=== PATIENT | male | born 1995 | race Caucasian/White ===

== ENCOUNTER 2018-05-23 12:39 | Emergency (ER) | payer OTHER ==
[2018-05-23 12:49] VITALS: BMI 25.8
[2018-05-23 12:50] VITALS: BP 145/65; PULSE 76; RESP 18; TEMP 98.5; O2SAT 100
[2018-05-23] MEDS ORDERED: TDAP Vaccine 0.5 mL Syr IM ONE (12:52)
--- NOTE | 2018-05-23 12:57 | ED PDOC ---
Arrival/HPI - General Time Seen by Provider: 05/23/18 12:40 Historian: Patient - History of Present Illness Narrative History of Present Illness (Text): 05/23/18 12:52 23 year old male, with no significant past medical history, presents to the ED for medical evaluation s/p dog bite to left hand prior to arrival. 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 Patient additionally informs twisting his left ankle while running away from the attack, prompting him to present to the ED for evaluation. Patient denies any other somatic complaints. Patient denies any fevers, chills, headache, dizziness, chest pain, shortness of breath, dyspnea on exertion, cough, abdominal pain, nausea, vomiting, diarrhea, back pain, neck pain, or any other complaints. Patient is unaware of dog's vaccination status. Patient does not remember his last tetanus vaccine. Time/Duration: Prior to Arrival Symptom Onset: Gradual Symptom Course: Unchanged Activities at Onset: Light Context: Work Past Medical History - Provider Review Nursing Documentation Reviewed: Yes Family/Social History - Physician Review Nursing Documentation Reviewed: Yes Family/Social History: No Known Family HX Allergies/Home Meds Allergies/Adverse Reactions: Allergies No Known Allergies Allergy (Unverified 05/23/18 12:51) Review of Systems - Physician Review All systems were reviewed & negative as marked: Yes - Review of Systems Constitutional: absent: Fevers Respiratory: absent: SOB, Cough Cardiovascular: absent: Chest Pain Gastrointestinal: absent: Abdominal Pain, Diarrhea, Nausea, Vomiting Musculoskeletal: Arthralgias (left ankle pain). absent: Back Pain, Neck Pain Skin: Other (dog bite to left hand) Neurological: absent: Headache, Dizziness Physical Exam Vital Signs Reviewed: Yes Vital Signs Temp Pulse Resp BP Pulse Ox 05/23/18 12:49 98.5 F 76 18 145/65 100 Temperature: Afebrile Blood Pressure: Normal Pulse: Regular Respiratory Rate: Normal Appearance: Positive for: Well-Appearing, Non-Toxic, Comfortable Pain Distress: None Mental Status: Positive for: Alert and Oriented X 3 - Systems Exam Head: Present: Atraumatic, Normocephalic Pupils: Present: PERRL Extroacular Muscles: Present: EOMI Conjunctiva: Present: Normal Respiratory/Chest: Present: Clear to Auscultation, Good Air Exchange. No: Respiratory Distress, Accessory Muscle Use Cardiovascular: Present: Regular Rate and Rhythm, Normal S1, S2. No: Murmurs Abdomen: No: Tenderness, Distention, Peritoneal Signs Back: Present: Normal Inspection Upper Extremity: Present: Other (puncture wound to left hand). No: Cyanosis, Edema Lower Extremity: Present: Normal Inspection. No: Edema Neurological: Present: GCS=15, CN II-XII Intact, Speech Normal Skin: Present: Warm, Dry, Normal Color. No: Rashes Psychiatric: Present: Alert, Oriented x 3, Normal Insight, Normal Concentration Medical Decision Making ED Course and Treatment: 05/23/18 13:00 Impression: 23 year old male presents to the ED for evaluation s/p dog bite. Plan: -- Augmentin -- TDAP -- X-ray of Left Ankle -- X-ray of Left Hand -- Reassess and disposition Prior Visits: Notes and results from previous visits were reviewed. Progress Notes: 05/23/18 14:57 X-rays of left ankle and left hand reviewed by radiologist, show normal radiographs. 05/23/18 16:00 pt now staets dog vaccinated. provoked attack no indicatyion for rabies. can follow up dog as pt has contact info. - RAD Interpretation Radiology Orders: 05/23/18 12:51 ANKLE LEFT 3 VIEWS ROUTINE [RAD] Stat HAND LEFT 3 VIEWS ROUTINE [RAD] Stat - Scribe Statement The provider has reviewed the documentation as recorded by the Scribe Zulma Jorgensen. All medical record entries made by the Scribe were at my direction and personally dictated by me. I have reviewed the chart and agree that the record accurately reflects my personal performance of the history, physical exam, medical decision making, and the department course for this patient. I have also personally directed, reviewed, and agree with the discharge instructions and disposition. Disposition/Present on Arrival - Present on Arrival Any Indicators Present on Arrival: No - Disposition Have Diagnosis and Disposition been Completed?: Yes Diagnosis: Dog bite Disposition: HOME/ ROUTINE Disposition Time: 12:00 Patient Problems: Current Active Problems Problem Status Onset Dog bite Acute Condition: STABLE Discharge Instructions (ExitCare): Animal Bites (DC) Additional Instructions: return to er with worsening symptoms or concerns. Prescriptions: Amoxicillin/Clavulanate [Augmentin 875 MG-125 MG] 1 tab PO BID #14 tab Forms: [facility] ([place]), WORK NOTE
[2018-05-23] MEDS ORDERED: Amoxicillin-Clav 875-125 mg Tab PO STA (12:59)
--- NOTE | 2018-05-23 14:53 | RAD ---
Date of service: 05/23/2018 PROCEDURE: Left Ankle Radiographs. HISTORY: trauma COMPARISON: None available. FINDINGS: BONES: Normal. No fracture. JOINTS: Normal. No osteoarthritis. Ankle mortise maintained. Talar dome intact SOFT TISSUES: Normal. OTHER FINDINGS: None. IMPRESSION: Normal left ankle radiographs.
--- NOTE | 2018-05-23 14:54 | RAD ---
PROCEDURE: Left Hand Radiographs. HISTORY: dog bite COMPARISON: None. FINDINGS: BONES: Normal. No fracture. JOINTS: Normal. No osteoarthritic changes. SOFT TISSUES: Normal. OTHER FINDINGS: None. IMPRESSION: Normal left hand radiographs.
== END 2018-05-23 13:50 | disposition home or self-care (01) ==
LOC: ED 12:39
DX: S61.452A Open bite of left hand, initial encounter (principal); W54.0XXA Bitten by dog, initial encounter; Z23 Encounter for immunization